=== PATIENT | female | born 1935 | race Caucasian/White ===

== ENCOUNTER 2017-09-19 12:39 | Emergency (ER) | payer OTHER, MEDICAID ==
[2017-09-19 12:57] VITALS: RESP 16; TEMP 97.9
--- NOTE | 2017-09-19 13:30 | EDPHY ---
H & P Time Seen by Provider: 09/19/17 12:42 HPI/ROS: This patient complains of one-week history of cough that is not improving. She reports moderate frequency with feeling of chest congestion occasionally productive of sputum. On some nights she has had difficulty sleeping due to the coughing. She reports associated nasal congestion. She reports that the mild sinus pressure associated with this sense resolve after she stands up in the morning fleeting. No other exacerbating factors are noted. She has associated myalgias. Finally, she reports low-grade fevers associated with her symptoms. ROS: No high fevers or chills. Minimal fatigue. No other constitutional symptoms HEENT: As per HPI. No other complaints Pulmonary: No pleuritic pain. No significant dyspnea. No hemoptysis. Cardiovascular: No chest pain. No lightheadedness. No lower extremity swelling. GI: No abdominal pain. No nausea vomiting or diarrhea. : No complaints Integumentary: No skin rash 10 point ROS is otherwise negative Past Medical/Surgical History: Type 2 diabetes Hypertension Smoking Status: Never smoked Physical Exam: Normal vital signs exception of an O2 sat of 93% on room air General Appearance: Alert, no distress. Eyes: Pupils equal and round no pallor or injection. ENT, Mouth: Mucous membranes moist. Respiratory: Rales left more than right base with rhonchi bilaterally in addition. Cardiovascular: Regular rate and rhythm. No murmur gallop rub. No JVD. No peripheral edema. Gastrointestinal: Abdomen is soft and nontender, no masses, bowel sounds normal. Neurological: GCS 15. Skin: Warm and dry, no rashes. Musculoskeletal: Neck is supple nontender. Extremities are symmetrical, full range of motion. Psychiatric: Mood and affect normal. DIFFERENTIAL DIAGNOSIS: After history and physical exam differential diagnosis was considered for influenza, bronchitis, URI with cough, pneumonia Constitutional: Initial Vital Signs Temperature (C) 36.6 C 09/19/17 12:46 Heart Rate 84 09/19/17 12:46 Respiratory Rate 16 09/19/17 12:46 Blood Pressure 123/83 H 09/19/17 12:46 O2 Sat (%) 93 09/19/17 12:46 O2 Delivery Mode Room Air Allergies/Adverse Reactions: NSAIDS (Non-Steroidal Anti-Inflamma Allergy (Verified 09/19/17 12:44) Home Medications: Medication Instructions Recorded Acetaminophen [Arthritis Pain 650 mg PO BID PRN 07/08/13 Reliever] Diltiazem HCl [Diltiazem 24Hr Cd] 240 mg PO DAILY 07/08/13 metFORMIN HCL [Glucophage] 750 mg PO DAILY 07/08/13 Albuterol Hfa Anes Only [Proair 2 puffs IH Q4 PRN #1 mdi 09/19/17 Hfa Icu (*)] Azithromycin [Zithromax] 250 mg PO DAILY #6 tab 09/19/17 MDM/Departure - MDM Diagnostics: Two view chest x-ray: Atelectasis versus infiltrate left more than right by my interpretation CBC is normal Serum lactate normal Rapid influenza is negative Chemistries are normal Imaging: I viewed and interpreted images myself Medications Given: Discontinued Medications Azithromycin (Zithromax) 500 mg PO EDNOW ONE PRN Reason: Protocol Stop: 09/19/17 14:18 Last Admin: 09/19/17 15:22 Dose: 500 mg Ceftriaxone Sodium 1 gm/ (Sodium Chloride) 100 mls @ 200 mls/hr IV EDNOW ONE PRN Reason: Protocol Stop: 09/19/17 14:45 Last Admin: 09/19/17 15:21 Dose: 100 mls ED Course/Re-evaluation: Patient initially workup for influenza a with a negative rapid flu swab. The chest x-ray is atelectasis versus infiltrate. With rales clinically along with rhonchi and slight wheeze patient certainly has bronchitis and may have early pneumonia. Given her age and history of diabetes will proceed with IV, blood cultures and workup with plan for antibiotics here. Clinically she appears well enough to go home on an inhaler and Zithromax provided there are no significant abnormalities on her workup. The patient had no hemodynamic instability and appears fit to proceed home on Zithromax. Given her findings of suspect bronchopneumonia verses acute bronchitis with rales at the bases attributable to atelectasis. Counseled regarding this. She is comfortable treatment plan. She understands need to return emergency department should she have any kind of worsening of her symptoms despite the treatment plan - Depart Disposition: Home, Routine, Self-Care Clinical Impression: Bronchopneumonia Condition: Good Instructions: Albuterol (By breathing), Azithromycin (By mouth), Acute Bronchitis (ED) Additional Instructions: Diagnosis: Bronchopneumonia He received a dose of ceftriaxone antibiotic IV and Zithromax antibiotic by mouth. Your influenza test was negative today. However he have bronchitis and evidence of possible early pneumonia on exam and chest x-ray. Plan: Humidifier Albuterol inhaler for cough, wheeze or shortness of breath Zithromax antibiotic-next dose tomorrow. Call your primary care physician to arrange follow-up appointment for recheck in 2-4 days. Return emergency department for any significant worsening despite the treatment plan. Prescriptions: Albuterol Hfa Anes Only [Proair Hfa Icu (*)] 2 puffs IH Q4 PRN #1 mdi PRN Reason: Wheezing Azithromycin [Zithromax] 250 mg PO DAILY #6 tab Referrals: Yu Olivera MD [Primary Care Provider] - As per Instructions
[2017-09-19] MEDS ORDERED: AZITHROMYCIN 250 MG TAB PO ONE (14:17)
[2017-09-19 14:45] LABS: PLATELET COUNT 323 10^3/uL (150-400)
[2017-09-19 15:58] VITALS: BP 134/88; PULSE 86; O2SAT 92
== END 2017-09-19 15:57 | disposition home or self-care (01) ==
LOC: CED 12:39
DX: J18.0 Bronchopneumonia, unspecified organism (principal); E11.9 Type 2 diabetes mellitus without complications; I10 Essential (primary) hypertension; Z79.84 Long term (current) use of oral hypoglycemic drugs
CPT/HCPCS: 71046; 96365; 99284; J0696; 80048-PO; 83605-PO; 85025-PO; 87400-PO